=== PATIENT | female | born 1990 | race Caucasian/White ===

== ENCOUNTER 2017-08-15 07:30 | Inpatient (IN) | payer OTHER ==
[2017-08-15] VITALS (7 sets, daily range): BP systolic 92–134; BP diastolic 50–88
[~2017-08-15] VITALS: Ht 170.2 cm; Wt 81.6 kg
[2017-08-15] MEDS ORDERED: BIRTH CONTROL PILL (07:40)
[2017-08-15 08:01] LABS: HEMOGLOBIN 14.2 gm/dL (12.0-15.0); MCH 30.7 pg (26.0-34.0)
[2017-08-15 08:02] LABS: HEMATOCRIT 41.3 % (37.0-47.0); MCHC 34.4 g/dL (28.0-37.0); MCV 89.4 fL (80.0-100.0); RBC 4.62 mil/uL (4.20-5.00); WBC 13.8 thou/uL (4.0-11.0)
[2017-08-15 08:12] LABS: CALCIUM 9.5 mg/dL (8.5-10.1); CREATININE 1.1 mg/dL (0.6-1.0); POTASSIUM 3.6 mmol/L (3.5-5.1)
[2017-08-15 08:13] LABS: URINE BILIRUBIN NEGATIVE (Negative); URINE BLOOD 3+ (Negative); URINE COLOR YELLOW; URINE GLUCOSE-RANDOM* NEGATIVE (Negative); URINE KETONES NEGATIVE (Negative); URINE LEUKOCYTES 2+ (Negative); URINE NITRITE POSITIVE (Negative); URINE PROTEIN (DIPSTICK) 2+ (Negative); URINE SPECIFIC GRAVITY >= 1.030 (1.005-1.035); URINE UROBILINOGEN 0.2 E.U./dl (0.2-1.0)
[2017-08-15 08:16] LABS: URINE CLARITY CLOUDY
[2017-08-15 08:18] LABS: DIRECT BILIRUBIN 0.2 mg/dL (<0.1-0.3); TOTAL BILIRUBIN 0.9 mg/dL (<0.1-1.0)
[2017-08-15 08:27] LABS: CASTS None Seen /LPF (None Seen); SQUAMOUS 4-10 Moderate /LPF (0-3)
[2017-08-15 08:29] LABS: URINE WBC >25 Many /HPF (0-5)
[2017-08-15 08:30] LABS: BACTERIA >30 Many /HPF (None Seen); CRYSTALS None Seen /LPF (None Seen); URINE RBC 3-10 Few /HPF (0-2)
[2017-08-15 10:00] LABS: ABSOLUTE NEUTROPHILS 11.9 thou/uL (1.4-8.2)
[2017-08-15 10:01] LABS: ANISOCYTOSIS SLIGHT; PLATELET COUNT 150 thou/uL (150-400)
[2017-08-15 15:27] LABS: URINE BILIRUBIN NEGATIVE (Negative); URINE BLOOD 2+ (Negative); URINE COLOR YELLOW; URINE GLUCOSE-RANDOM* NEGATIVE (Negative); URINE KETONES 1+ (Negative); URINE NITRITE-REFLEX NEGATIVE (Negative); URINE PROTEIN (DIPSTICK) 1+ (Negative)
[2017-08-15 15:28] LABS: URINE CLARITY HAZY; URINE LEUKOCYTES-REFLEX 1+ (Negative)
[2017-08-15 15:36] LABS: BACTERIA-REFLEX 1-9 Few /HPF (None Seen); CASTS None Seen /LPF (None Seen); SQUAMOUS 0-3 Few /LPF (0-3); URINE RBC 3-10 Few /HPF (0-2); URINE WBC-REFLEX >25 Many /HPF (0-5)
[2017-08-15 15:37] LABS: CRYSTALS None Seen /LPF (None Seen)
[2017-08-16 03:55] VITALS: BP 90/44
[2017-08-16 05:26] LABS: ABSOLUTE NEUTROPHILS 10.2 thou/uL (1.4-8.2); BASOPHILS 0.2 % (0.0-2.0); EOSINOPHILS 0.5 % (0.0-3.0); HEMATOCRIT 32.2 % (37.0-47.0); LYMPHOCYTES 16.2 % (24.0-44.0); MCH 30.5 pg (26.0-34.0); MCHC 33.9 g/dL (28.0-37.0); MONOCYTES 7.5 % (1.0-8.0); PLATELET COUNT 126 thou/uL (150-400); POLYS 75.6 % (36.0-66.0); RBC 3.58 mil/uL (4.20-5.00); RDW 13.3 % (10.5-14.5); WBC 13.5 thou/uL (4.0-11.0)
[2017-08-16 05:49] LABS: CALCIUM 8.2 mg/dL (8.5-10.1); CREATININE 0.9 mg/dL (0.6-1.0); MAGNESIUM 1.8 mg/dL (1.8-2.4); POTASSIUM 3.7 mmol/L (3.5-5.1)
[2017-08-16 05:55] LABS: HEMOGLOBIN 10.9 gm/dL (12.0-15.0)
[2017-08-16 08:00] VITALS: BP 102/61
[2017-08-16 16:00] VITALS: BP 105/70
[2017-08-16 19:28] VITALS: BP 114/48
[2017-08-17 06:13] VITALS: BP 105/62
[2017-08-17 07:31] VITALS: BP 121/77
[2017-08-17 11:52] LABS: BASOPHILS 0.2 % (0.0-2.0); EOSINOPHILS 0.5 % (0.0-3.0); HEMATOCRIT 33.9 % (37.0-47.0); HEMOGLOBIN 11.5 gm/dL (12.0-15.0); LYMPHOCYTES 21.7 % (24.0-44.0); MCH 30.5 pg (26.0-34.0); MCHC 33.9 g/dL (28.0-37.0); MCV 89.9 fL (80.0-100.0); MONOCYTES 8.4 % (1.0-8.0); PLATELET COUNT 137 thou/uL (150-400); POLYS 69.2 % (36.0-66.0); RBC 3.77 mil/uL (4.20-5.00); RDW 13.5 % (10.5-14.5); WBC 7.2 thou/uL (4.0-11.0)
[2017-08-17 12:02] LABS: CALCIUM 8.4 mg/dL (8.5-10.1); CREATININE 0.8 mg/dL (0.6-1.0)
[2017-08-17 15:50] VITALS: BP 100/63
[2017-08-17 20:00] VITALS: BP 115/82
[2017-08-18 03:56] VITALS: BP 118/63
[2017-08-18 06:36] LABS: HEMATOCRIT 32.7 % (37.0-47.0); HEMOGLOBIN 11.5 gm/dL (12.0-15.0); MCH 31.2 pg (26.0-34.0); MCV 89.2 fL (80.0-100.0); RBC 3.67 mil/uL (4.20-5.00); RDW 13.3 % (10.5-14.5); WBC 6.4 thou/uL (4.0-11.0)
[2017-08-18 06:55] LABS: CALCIUM 8.4 mg/dL (8.5-10.1); CREATININE 0.8 mg/dL (0.6-1.0); POTASSIUM 3.7 mmol/L (3.5-5.1)
[2017-08-18 08:00] VITALS: BP 122/66
[2017-08-18] MEDS ORDERED: KEFLEX500 M1 PO (15:32)
[2017-08-18 15:44] VITALS: BP 121/76
[2017-08-18 16:09] VITALS: BP 121/76
== END 2017-08-18 16:39 | disposition home or self-care (01) | DRG 871 ==
LOC: ER 07:30 → 4W 08:40 → EROBS 08:40 → 4W 09:23 → ENTRNSPT 08-18 16:22 → 4W 08-18 16:39
PROVIDERS: Emergency Medicine; Hospitalist; Nurse Practitioner
DX: A41.9 Sepsis, unspecified organism (principal); N17.0 Acute kidney failure with tubular necrosis; N12 Tubulo-interstitial nephritis, not specified as acute or chronic; F17.210 Nicotine dependence, cigarettes, uncomplicated; Z88.8 Allergy status to other drugs, medicaments and biological substances; Z79.2 Long term (current) use of antibiotics; Z79.899 Other long term (current) drug therapy; Z82.49 Family history of ischemic heart disease and other diseases of the circulatory system; Z84.1 Family history of disorders of kidney and ureter
CPT/HCPCS: 10045

== ENCOUNTER 2017-09-18 19:35 | Emergency (ER) | payer OTHER ==
[~2017-09-18] VITALS: Ht 170.2 cm; Wt 81.7 kg
[~2017-09-18 19:35] MED LIST: BIRTH CONTROL PILL; KEFLEX500 M1 PO
[2017-09-18 20:04] LABS: URINE BILIRUBIN NEGATIVE (Negative); URINE BLOOD 2+ (Negative); URINE CLARITY SL CLOUDY; URINE COLOR YELLOW; URINE GLUCOSE-RANDOM* NEGATIVE (Negative); URINE KETONES 2+ (Negative); URINE PROTEIN (DIPSTICK) 2+ (Negative)
[2017-09-18 20:08] LABS: URINE LEUKOCYTES-REFLEX 1+ (Negative); URINE NITRITE-REFLEX POSITIVE (Negative)
[2017-09-18 20:15] LABS: BACTERIA-REFLEX >30 Many /HPF (None Seen); CRYSTALS None Seen /LPF (None Seen); FINE GRANULAR CASTS 0-3 Few /LPF (None Seen); HYALINE CASTS 0-3 Few /LPF (None Seen); MUCUS 0-3 Light strn/LPF (None Seen); SQUAMOUS >10 Many /LPF (0-3); URINE RBC 3-10 Few /HPF (0-2); URINE WBC-REFLEX >25 Many /HPF (0-5)
[2017-09-18 20:16] LABS: WBC CLUMPS Moderate (None Seen)
[2017-09-18 20:55] LABS: WBC 14.6 thou/uL (4.0-11.0)
[2017-09-18 20:56] LABS: ABSOLUTE NEUTROPHILS 12.8 thou/uL (1.4-8.2); BASOPHILS 0.2 % (0.0-2.0); HEMATOCRIT 37.7 % (37.0-47.0); HEMOGLOBIN 12.9 gm/dL (12.0-15.0); LYMPHOCYTES 6.5 % (24.0-44.0); MCH 30.3 pg (26.0-34.0); MCHC 34.2 g/dL (28.0-37.0); MCV 88.6 fL (80.0-100.0); MONOCYTES 5.6 % (1.0-8.0); PLATELET COUNT 141 thou/uL (150-400); POLYS 87.7 % (36.0-66.0); RBC 4.26 mil/uL (4.20-5.00); RDW 13.2 % (10.5-14.5)
[2017-09-18 20:59] LABS: POTASSIUM 3.4 mmol/L (3.5-5.1)
[2017-09-18 21:04] LABS: ALBUMIN 3.6 g/dL (3.4-5.0); TOTAL BILIRUBIN 0.8 mg/dL (<0.1-1.0); TOTAL PROTEIN 7.7 g/dL (6.4-8.2)
[2017-09-18] MEDS ORDERED: ONDANSETRON HCL4 M2 PO (21:47)
[2017-09-18] MEDS ORDERED: BACTRIM DS TAB1 EACH PO (21:47)
== END 2017-09-18 22:06 | disposition home or self-care (01) ==
LOC: ER 19:35
PROVIDERS: Physician Assistant
DX: N12 Tubulo-interstitial nephritis, not specified as acute or chronic (principal); D72.829 Elevated white blood cell count, unspecified; M54.9 Dorsalgia, unspecified; G89.29 Other chronic pain; Z88.8 Allergy status to other drugs, medicaments and biological substances

== ENCOUNTER 2018-05-11 09:26 | Emergency (ER) | payer OTHER ==
[~2018-05-11] VITALS: Ht 170.2 cm; Wt 85.3 kg
[~2018-05-11 09:26] MED LIST changes: +BACTRIM DS TAB1 EACH PO; +ONDANSETRON HCL4 M2 PO
[2018-05-11 09:51] LABS: URINE BILIRUBIN NEGATIVE (Negative); URINE BLOOD TRACE (Negative); URINE CLARITY CLOUDY; URINE COLOR YELLOW; URINE GLUCOSE-RANDOM* NEGATIVE (Negative); URINE KETONES NEGATIVE (Negative); URINE NITRITE-REFLEX NEGATIVE (Negative); URINE PROTEIN (DIPSTICK) TRACE (Negative); URINE SPECIFIC GRAVITY 1.025 (1.005-1.035); URINE UROBILINOGEN 0.2 E.U./dl (0.2-1.0)
[2018-05-11 09:53] LABS: URINE LEUKOCYTES-REFLEX 1+ (Negative)
[2018-05-11] MEDS ORDERED: KEFLEX500 M1 PO (10:10)
[2018-05-11 10:12] LABS: SQUAMOUS >10 Many /LPF (0-3)
[2018-05-11 10:13] LABS: CASTS None Seen /LPF (None Seen); CRYSTALS None Seen /LPF (None Seen); URINE RBC 3-10 Few /HPF (0-2)
[2018-05-11 10:43] VITALS: BP 126/81
== END 2018-05-11 10:35 | disposition home or self-care (01) ==
LOC: ER 09:26
PROVIDERS: Emergency Medicine
DX: N12 Tubulo-interstitial nephritis, not specified as acute or chronic (principal); M54.9 Dorsalgia, unspecified; G89.29 Other chronic pain; Z88.8 Allergy status to other drugs, medicaments and biological substances; Z98.890 Other specified postprocedural states